=== PATIENT | male | born 1950 | race Two or more races ===

== ENCOUNTER 2021-08-29 07:04 | Day surgery (SDC) | payer OTHER ==
[2021-08-29] MEDS ORDERED: ULTRAM50 MG PO (12:06)
== END 2021-08-29 13:05 | disposition home or self-care (01) ==
LOC: CIR.AMB 07:04
PROVIDERS: ATTEND Surgery
DX: C20 Malignant neoplasm of rectum (principal)
CPT/HCPCS: 36561; C1751

== ENCOUNTER 2023-06-22 10:13 | Inpatient (IN) | payer OTHER ==
[~2023-06-22] VITALS: Ht 170.2 cm; Wt 72.6 kg
[~2023-06-22 10:13] MED LIST: ULTRAM50 MG PO
[2023-06-23] MEDS ORDERED: COZAAR25 MG PO (13:09)
[2023-06-27 08:04] LABS: HEMATOCRIT 34.4 % (39.0-48.0); HEMOGLOBIN 11.2 g/dL (13-16.00); MEAN CELL VOLUME 83.9 fL (80.0-100.00); MEAN CORPUSCULAR HEMOGLOBIN 27.4 pg (27.00-32.0); MEAN CORPUSCULAR HGB CONC 32.7 g/dl (32.0-36.0); RED CELL DISTRIBUTION WIDTH 12.7 % (11.5-14.5)
[2023-06-27 08:11] LABS: PLATELET COUNT 94 K/uL (150-450)
[2023-06-27 08:12] LABS: ALBUMIN 3.2 gm/dL (3.4-5.0); CALCIUM 8.1 mg/dL (8.5-10.1); CREATININE SERUM 0.89 mg/dL (0.70-1.30); GFR 84.02; POTASSIUM 3.99 mEq/L (3.5-5.1)
[2023-06-28 08:50] LABS: HEMATOCRIT 34.7 % (39.0-48.0); HEMOGLOBIN 11.9 g/dL (13-16.00); MEAN CELL VOLUME 82.2 fL (80.0-100.00); MEAN CORPUSCULAR HEMOGLOBIN 28.2 pg (27.00-32.0); MEAN CORPUSCULAR HGB CONC 34.3 g/dl (32.0-36.0); RED BLOOD COUNT 4.22 M/uL (4.00-6.00); RED CELL DISTRIBUTION WIDTH 13.2 % (11.5-14.5)
[2023-06-28 09:23] LABS: CALCIUM 8.1 mg/dL (8.5-10.1); CREATININE SERUM 0.81 mg/dL (0.70-1.30); GFR 93.67; POTASSIUM 4.42 mEq/L (3.5-5.1)
[2023-06-28 10:18] LABS: PLATELET COUNT 91 K/uL (150-450)
[2023-06-30] MEDS ORDERED: HYOSCYAMINE0.125 M1 SL (08:29)
[2023-06-30] MEDS ORDERED: INTESTINEX680 M1 PO (08:30)
[2023-06-30] MEDS ORDERED: TAMS0.4C PO (08:31)
== END 2023-06-30 14:40 | disposition home or self-care (01) | DRG 330 ==
LOC: SURH 06-26 05:30 → O/R 06-26 05:30 → SURH 06-26 08:45 → O/R 06-26 13:03 → SURH 06-26 13:34
PROVIDERS: Internal Medicine Geriatric Medicine; ADMIT Surgery; ATTEND Surgery
PROC: 0DBP4ZZ Excision of Rectum, Percutaneous Endoscopic Approach (ICD-10-PCS; 2023-06-26)
PROC: 0DTN4ZZ Resection of Sigmoid Colon, Percutaneous Endoscopic Approach (ICD-10-PCS; 2023-06-26)
PROC: 07BB4ZZ Excision of Mesenteric Lymphatic, Percutaneous Endoscopic Approach (ICD-10-PCS; 2023-06-26)
PROC: 07BC4ZZ Excision of Pelvis Lymphatic, Percutaneous Endoscopic Approach (ICD-10-PCS; 2023-06-26)
PROC: 0DJD8ZZ Inspection of Lower Intestinal Tract, Via Natural or Artificial Opening Endoscopic (ICD-10-PCS; 2023-06-26)
PROC: 3E0F7SF Introduction of Other Gas into Respiratory Tract, Via Natural or Artificial Opening (ICD-10-PCS; 2023-06-26)
PROC: 0D1B4Z4 Bypass Ileum to Cutaneous, Percutaneous Endoscopic Approach (ICD-10-PCS; principal; 2023-06-26 09:00)
DX: C20 Malignant neoplasm of rectum (principal); K62.5 Hemorrhage of anus and rectum; K62.89 Other specified diseases of anus and rectum; D64.89 Other specified anemias; K63.5 Polyp of colon; R59.0 Localized enlarged lymph nodes; D69.59 Other secondary thrombocytopenia; Z92.21 Personal history of antineoplastic chemotherapy